=== PATIENT | female | born 1995 | race American Indian/Alaskan Native ===

== ENCOUNTER 2021-10-31 13:34 | Emergency (ER) | payer SELFPAY ==
[2021-10-31 14:10] VITALS: BP 153/108
[2021-10-31] MEDS ORDERED: traMADol 50 MG TAB PO ONE (15:40)
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
[2021-10-31] MEDS ORDERED: ONDANSETRON 4 MG ODT TAB PO ONE (17:19)
[2021-10-31] MEDS ORDERED: ONDANSETRON 4 MG ODT TAB ONE (17:20)
== END 2021-10-31 17:33 | disposition home or self-care (01) ==
LOC: ED 13:34
DX: M79.18 Myalgia, other site (principal); M79.651 Pain in right thigh; V49.59XA Passenger injured in collision with other motor vehicles in traffic accident, initial encounter; Y93.89 Activity, other specified; Y92.89 Other specified places as the place of occurrence of the external cause; Y99.8 Other external cause status
CPT/HCPCS: 99283; J3490; Q0162